=== PATIENT | female | born 2000 | race Hispanic/Latino ===

== ENCOUNTER 2021-07-23 22:20 | Emergency (ER) | payer BC, OTHER ==
[2021-07-24 00:23] LABS: HIV (1/2) Antibody/Antigen Non-Reactive (NonReactive); HIV 1/2 INDEX 0.11 S/CO (<1.00)
[2021-07-26 17:29] LABS: Hep C IgG Ab Non-Reactive (NonReactive); Hep C Index 0.42 S/CO (0-0.79)
[2021-07-26 17:30] LABS: HBSAB Concentration 219.63 mIU/mL; Hep B Surf AB Reactive (NonReactive)
== END 2021-07-23 23:59 | disposition home or self-care (01) ==
LOC: CSHERS 22:20
DX: Z77.21 Contact with and (suspected) exposure to potentially hazardous body fluids (principal); W46.1XXA Contact with contaminated hypodermic needle, initial encounter
CPT/HCPCS: 86706; 86803; 87389; 99283